=== PATIENT | female | born 1975 | race Caucasian/White ===

== ENCOUNTER 2022-11-11 15:33 | Outpatient (CLI) | payer OTHER ==
--- NOTE | 2022-11-11 17:25 | XRAY Report ---
PROCEDURE: Chest 2 View X-Ray INDICATIONS: DYSPNEA TECHNIQUE: 2 views of the chest were acquired. COMPARISON: None FINDINGS: Surgical changes and devices: None. Lungs and pleura: Diffuse bilateral perihilar interstitial thickening. Mild bronchial wall thickening in the infrahilar region on the right. No focal consolidation, pleural effusion, or pneumothorax. Mediastinum: Slight prominence of the right mediastinum. Aortic contour is normal. Heart size is norm al. Bones and chest wall: No suspicious bony abnormalities. Soft tissues appear unremarkable. IMPRESSION: 1. Diffuse interstitial thickening and bronchial wall thickening suggestive of an interstitial or vir al pneumonitis. There is also be a superimposed bronchitis. 2. No pleural effusion. 3. Prominent right mediastinal contour, probably adenopathy. Consider repeat two-view chest x-ray aft er resolution of current symptoms. Reviewed by: Jovana Rae MD on 11/11/2022 5:24 PM PST Approved by: Jovana Rae MD on 11/11/2022 5:24 PM PST Station ID: [id number]
== END 2022-11-11 23:59 | disposition home or self-care (01) ==
LOC: DI.N 15:33
PROVIDERS: ATTEND Physician Assistant Medical
DX: R91.8 Other nonspecific abnormal finding of lung field (principal)

== ENCOUNTER 2022-11-12 13:39 | Emergency (ER) | payer OTHER ==
--- NOTE | 2022-11-12 15:03 | ED Physician Documentation ---
PD HPI DYSPNEA - Stated complaint Stated Complaint: SOA - Chief complaint Chief Complaint: Resp - History obtained from History obtained from: Patient - Additional information Additional information: 47-year-old woman who is generally healthy with the exception of noted BMI of 56 presents for evaluation of dyspnea. About a week and a half ago developed a flulike illness with cough, sore throat, runny nose aches. She tested negative for COVID. Subsequently that all got better but she has had progressive dyspnea ever since. The cough is resolved. She went to urgent care yesterday where she had an x-ray done showing bronchitis. She was diagnosed with pneumonia and started on doxycycline and albuterol and has not improved, in fact has gotten a little worse. She denies chest pain. She denies pedal edema (noting she does have pedal edema on exam). She has minimal cough at this point. No fevers. No history of heart or lung problems. A former smoker, she quit smoking 12 years ago. Review of Systems Constitutional: denies: Chills Cardiac: denies: Chest pain / pressure, Palpitations, Pedal edema, Calf pain Respiratory: reports: Dyspnea PD PAST MEDICAL HISTORY - Present Medications Home Medications: Ambulatory Orders Medication Instructions Recorded Confirmed Albuterol Sulfate [Proair 90 mcg IH QID PRN 11/12/22 11/12/22 Respiclick] Doxycycline [Vibramycin] 100 mg PO BID 11/12/22 11/12/22 Furosemide [Lasix] 20 mg PO DAILY #7 tablet 11/12/22 Lisinopril [Zestril] 20 mg PO DAILY #30 tablet 11/12/22 Potassium Chloride 10 meq PO DAILY #7 tab 11/12/22 - Allergies Allergies/Adverse Reactions: Allergies Allergy/AdvReac Type Severity Reaction Status Date / Time amoxicillin Allergy Unknown Verified 11/12/22 13:53 Penicillins Allergy Unknown Verified 11/12/22 13:53 ibuprofen AdvReac Emesis Verified 11/12/22 13:53 PD ED PE NORMAL - Vitals Vital signs reviewed: Yes - General General: Alert and oriented X 3, No acute distress - HEENT HEENT: PERRL, EOMI - Neck Neck: Supple, no meningeal sign, No bony TTP - Cardiac Cardiac: RRR, No murmur - Respiratory Respiratory: No respiratory distress, Clear bilaterally - Abdomen Abdomen: Non tender - Back Back: No CVA TTP, No spinal TTP - Derm Derm: Normal color, Warm and dry - Extremities Extremities: Other (2+ bilateral pitting pedal edema without calf tenderness.) - Neuro Neuro: Alert and oriented X 3, Normal speech Results - Vitals Vitals: Vital Signs - 24 hr 11/12/22 11/12/22 11/12/22 13:49 14:56 16:52 Temperature 37.2 C Heart Rate 93 87 75 Respiratory 18 16 16 Rate Blood Pressure 152/75 H 209/94 H O2 Saturation 92 96 95 Oxygen O2 Source Room air - EKG (time done) 1548 Rate: Rate (enter#) (78) Rhythm: NSR, LAE [place]: Normal Intervals: Normal VA QRS: Low voltage Ischemia: Q waves (yessy/lat). No: ST elevation c/w ischemia, ST depression Compare to prior EKG: Old EKG unavailable Computer interpretation: Agree with computer - Labs Labs: Laboratory Tests 11/12/22 11/12/22 11/12/22 14:12 15:09 15:31 WBC 10.7 RBC 3.72 L Hgb 11.0 L Hct 35.7 L MCV 96.0 MCH 29.6 MCHC 30.8 L RDW 14.4 Plt Count 394 MPV 9.6 Neut # (Auto) 8.6 H Lymph # (Auto) 1.3 L Haines # (Auto) 0.7 Eos # (Auto) 0.0 Baso # (Auto) 0.0 Absolute Nucleated RBC 0.00 Nucleated RBC % 0.0 VBG pH VBG pCO2 VBG pO2 VBG HCO3 VBG Total CO2 VBG O2 Saturation VBG Base Excess Sodium Potassium Chloride Carbon Dioxide Anion Gap BUN Creatinine Estimated GFR (MDRD) Glucose Calcium Total Bilirubin AST ALT Alkaline Phosphatase Troponin I High Sens B-Natriuretic Peptide Total Protein Albumin Globulin Albumin/Globulin Ratio Urine Color YELLOW Urine Clarity CLEAR Urine pH 6.0 Ur Specific [place] <=1.005 Urine Protein NEGATIVE Urine Glucose (UA) NEGATIVE Urine Ketones NEGATIVE Urine Occult Blood TRACE-INTA Urine Nitrite NEGATIVE Urine Bilirubin NEGATIVE Urine Urobilinogen 0.2 (NORMAL) Ur Leukocyte Esterase NEGATIVE Ur Microscopic Review NOT INDICATED Urine Culture Comments NOT INDICATED Urine HCG, Qual NEGATIVE Nasal Adenovirus (PCR) NOT DETECTED Nasal B. parapertussis DNA (PCR) NOT DETECTED Nasal Coronavir 229E PCR NOT DETECTED Nasal Coronavir HKU1 PCR NOT DETECTED Nasal Coronavir NL63 PCR NOT DETECTED Nasal Coronavir OC43 PCR NOT DETECTED Nasal Enterovir/Rhinovir PCR NOT DETECTED Nasal Influenza B PCR NOT DETECTED Nasal Influenza A PCR NOT DETECTED Nasal Parainfluen 1 PCR NOT DETECTED Nasal Parainfluen 2 PCR NOT DETECTED Nasal Parainfluen 3 PCR NOT DETECTED Nasal Parainfluen 4 PCR NOT DETECTED Nasal RSV (PCR) NOT DETECTED Nasal B.pertussis DNA PCR NOT DETECTED Nasal C.pneumoniae (PCR) NOT DETECTED Negro Human Metapneumo PCR NOT DETECTED Nasal M.pneumoniae (PCR) NOT DETECTED Nasal SARS-CoV-2 (PCR) NOT DETECTED 11/12/22 11/12/22 11/12/22 15:31 15:31 15:31 WBC RBC Hgb Hct MCV MCH MCHC RDW Plt Count MPV Neut # (Auto) Lymph # (Auto) Haines # (Auto) Eos # (Auto) Baso # (Auto) Absolute Nucleated RBC Nucleated RBC % VBG pH 7.455 H VBG pCO2 44.8 VBG pO2 59.8 H VBG HCO3 30.8 H VBG Total CO2 32.2 H VBG O2 Saturation 91.3 H VBG Base Excess 6.1 H Sodium 137 Potassium 3.9 Chloride 96 L Carbon Dioxide 31 Anion Gap 10.0 BUN 13 Creatinine 0.8 Estimated GFR (MDRD) 77 L Glucose 106 H Calcium 9.1 Total Bilirubin 0.9 AST 42 ALT 106 H Alkaline Phosphatase 123 H Troponin I High Sens B-Natriuretic Peptide 534 H Total Protein 7.9 Albumin 3.8 Globulin 4.1 Albumin/Globulin Ratio 0.9 L Urine Color Urine Clarity Urine pH Ur Specific [place] Urine Protein Urine Glucose (UA) Urine Ketones Urine Occult Blood Urine Nitrite Urine Bilirubin Urine Urobilinogen Ur Leukocyte Esterase Ur Microscopic Review Urine Culture Comments Urine HCG, Qual Nasal Adenovirus (PCR) Nasal B. parapertussis DNA (PCR) Nasal Coronavir 229E PCR Nasal Coronavir HKU1 PCR Nasal Coronavir NL63 PCR Nasal Coronavir OC43 PCR Nasal Enterovir/Rhinovir PCR Nasal Influenza B PCR Nasal Influenza A PCR Nasal Parainfluen 1 PCR Nasal Parainfluen 2 PCR Nasal Parainfluen 3 PCR Nasal Parainfluen 4 PCR Nasal RSV (PCR) Nasal B.pertussis DNA PCR Nasal C.pneumoniae (PCR) Negro Human Metapneumo PCR Nasal M.pneumoniae (PCR) Nasal SARS-CoV-2 (PCR) 11/12/22 15:31 WBC RBC Hgb Hct MCV MCH MCHC RDW Plt Count MPV Neut # (Auto) Lymph # (Auto) Haines # (Auto) Eos # (Auto) Baso # (Auto) Absolute Nucleated RBC Nucleated RBC % VBG pH VBG pCO2 VBG pO2 VBG HCO3 VBG Total CO2 VBG O2 Saturation VBG Base Excess Sodium Potassium Chloride Carbon Dioxide Anion Gap BUN Creatinine Estimated GFR (MDRD) Glucose Calcium Total Bilirubin AST ALT Alkaline Phosphatase Troponin I High Sens 69.0 H* B-Natriuretic Peptide Total Protein Albumin Globulin Albumin/Globulin Ratio Urine Color Urine Clarity Urine pH Ur Specific [place] Urine Protein Urine Glucose (UA) Urine Ketones Urine Occult Blood Urine Nitrite Urine Bilirubin Urine Urobilinogen Ur Leukocyte Esterase Ur Microscopic Review Urine Culture Comments Urine HCG, Qual Nasal Adenovirus (PCR) Nasal B. parapertussis DNA (PCR) Nasal Coronavir 229E PCR Nasal Coronavir HKU1 PCR Nasal Coronavir NL63 PCR Nasal Coronavir OC43 PCR Nasal Enterovir/Rhinovir PCR Nasal Influenza B PCR Nasal Influenza A PCR Nasal Parainfluen 1 PCR Nasal Parainfluen 2 PCR Nasal Parainfluen 3 PCR Nasal Parainfluen 4 PCR Nasal RSV (PCR) Nasal B.pertussis DNA PCR Nasal C.pneumoniae (PCR) Negro Human Metapneumo PCR Nasal M.pneumoniae (PCR) Nasal SARS-CoV-2 (PCR) PD Medical Decision Making - ED course ED course: 47-year-old woman with progressive dyspnea after a flulike illness. She was diagnosed with pneumonia yesterday and started on doxycycline and albuterol, that said the pedal edema is concerning (but may be related to body habitus) and her lungs are clear. We will broaden the differential to rule out CHF and PE. Subsequently her testing came back with an elevated troponin but a nonischemic EKG and no chest pain, and elevated BNP and mild elevation of the liver enzymes. This constellation is consistent with new onset CHF. 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 She was medicated here with lisinopril, IV Lasix, and potassium. I recommended admission for medical management and echocardiograph versus transfer to a facility that has cardiology consultation ability. After extensive discussion she declined and decided to leave [facility], she has an appoint with her primary care physician tomorrow. Departure - Departure Disposition: Against Medical Advice Clinical Impression: Congestive heart failure Qualifiers: Heart failure type: unspecified Heart failure chronicity: acute Qualified Code(s): I50.9 - Heart failure, unspecified Condition: Good Record reviewed to determine appropriate education?: Yes Instructions: ED CHF General Prescriptions: Furosemide [Lasix] 20 mg PO DAILY #7 tablet Potassium Chloride 10 meq PO DAILY #7 tab Lisinopril [Zestril] 20 mg PO DAILY #30 tablet Comments: You were seen today for new onset congestive heart failure after a viral illness. Your blood counts were notable for hemoglobin of 11, hematocrit of 35.7. Venous blood gas showed a pH of 7.455, CO2 44. Chemistry panel showed mild congestive hepatopathy likely with an ALT of 106, AST 42, alkaline phosphatase of 123. Your troponin was elevated at 69, high end of normal would be 15, and your BNP was elevated at 534, normal would be less than 100. Urinalysis was negative as was a test, and a respiratory PCR which checks for COVID, flu, RSV etc. was negative. CT angiography of the chest was negative for pulmonary embolism. We have recommended admission to the hospital or transfer to a facility capable of a more thorough cardiac work-up. After discussion you have decided to leave AGAINST MEDICAL ADVICE. Prior to leaving you were administered 40 mg of IV Lasix, 20 mg of oral lisinopril, and 20 mEq of oral potassium. Follow-up with your doctor tomorrow as scheduled. Return for new or worsening symptoms. Mg
[2022-11-12 15:17] LABS: BILIRUBIN,URINE NEGATIVE (NEGATIVE); GLUCOSE, URINE (UA) NEGATIVE (NEGATIVE); KETONES,URINE (UA) NEGATIVE (NEGATIVE); LEUKOCYTE ESTERASE, URINE NEGATIVE (NEGATIVE); NITRITE,URINE NEGATIVE (NEGATIVE); OCCULT BLOOD,URINE TRACE-INTA (NEGATIVE); PROTEIN,URINE NEGATIVE (NEGATIVE); UROBILINOGEN,URINE 0.2 (NORMAL) E.U./dL (NORMAL)
[2022-11-12 15:19] LABS: CLARITY,URINE CLEAR (CLEAR)
[2022-11-12 15:20] LABS: HCG UR QUAL NEGATIVE
[2022-11-12 15:38] LABS: BASOPHILS % (AUTO) 0.4 %; EOSINOPHILS % (AUTO) 0.1 %; HCT - HEMATOCRIT 35.7 % (37.0-47.0); LYMPHOCYTES # (AUTO) 1.3 10^3/uL (1.5-3.5); LYMPHOCYTES % (AUTO) 11.8 %; MEAN CORPUSCULAR HEMOGLOBIN 29.6 pg (27.0-31.0); MEAN CORPUSCULAR HGB CONC 30.8 g/dL (32.0-36.0); MEAN PLATELET VOLUME 9.6 fL (7.9-10.8); MONOCYTES # (AUTO) 0.7 10^3/uL (0.0-1.0); MONOCYTES % (AUTO) 6.4 %; NEUTROPHILS # (AUTO) 8.6 10^3/uL (1.5-6.6); NEUTROPHILS % (AUTO) 80.5 %; PLT - PLATELET COUNT 394 10^3/uL (130-450); RED BLOOD COUNT 3.72 10^6/uL (4.20-5.40); RED CELL DISTRIBUTION WIDTH 14.4 % (12.0-15.0); WHITE BLOOD COUNT 10.7 x10^3/uL (4.8-10.8)
[2022-11-12 15:43] LABS: VBG BASE EXCESS 6.1 mmol/L (-2 - +2); VBG HCO3 30.8 mmol/L (23-28); VBG OXYGEN SATURATION 91.3 % (60-80); VBG PCO2 44.8 mmHg (41-51); VBG PH 7.455 (7.31-7.41); VBG PO2 59.8 mmHg (25-47); VBG TOTAL CO2 32.2 mmol/L (24-29)
[2022-11-12 15:50] LABS: ALBUMIN 3.8 g/dL (3.2-5.5); ALBUMIN/GLOBULIN RATIO 0.9 (1.0-2.2); BILIRUBIN,TOTAL 0.9 mg/dL (0.2-1.0); CALCIUM 9.1 mg/dL (8.5-10.3); CREATININE 0.8 mg/dL (0.4-1.0); POTASSIUM 3.9 mmol/L (3.5-5.0); TOTAL PROTEIN 7.9 g/dL (6.7-8.2)
[2022-11-12] MEDS ORDERED: iohexoL-300 100 ML VIAL ONE (16:01)
[2022-11-12] MEDS ORDERED: iohexoL-300 100 ML VIAL IVP ONE (16:21)
[2022-11-12 16:37] LABS: B. PARAPERTUSSIS- RESP PCR PAN NOT DETECTED; B. PERTUSSIS- RESP PCR PANEL NOT DETECTED; C. PNEUMONIAE- RESP PCR PANEL NOT DETECTED; CORONAVIRUS 229E-RESP PCR NOT DETECTED; CORONAVIRUS HKU1-RESP PCR NOT DETECTED; CORONAVIRUS NL63-RESP PCR NOT DETECTED; CORONAVIRUS OC43-RESP PCR NOT DETECTED; HUMAN METAPNEUMOVIRUS NOT DETECTED; INFLUENZA A- RESP PCR PANEL NOT DETECTED; INFLUENZA B - RESP PCR PANEL NOT DETECTED; M. PNEUMONIAE- RESP PCR PANEL NOT DETECTED; PARAINFLUENZA VIRUS 1 NOT DETECTED; PARAINFLUENZA VIRUS 2 NOT DETECTED; PARAINFLUENZA VIRUS 3 NOT DETECTED; PARAINFLUENZA VIRUS 4 NOT DETECTED; RHINOVIRUS/ENTEROVIRUS NOT DETECTED; RSV- RESP PCR PANEL NOT DETECTED; SARS-CoV-2 -RESP PCR PANEL NOT DETECTED
--- NOTE | 2022-11-12 16:50 | CT Report ---
PROCEDURE: ANGIO CHEST W/WO INDICATIONS: pe protocol, dyspnea CONTRAST: 80mL Omni 300 TECHNIQUE: After the administration of intravenous contrast, 2 mm axial images were acquired from the pulmonary apices to the posterior costophrenic angles during the arterial phase. In addition, 1 mm lung kernel and 5 mm soft tissue kernel reconstructions were performed. 3-dimensional coronal oblique maximum int ensity projection (MIP) reformats, 8 mm axial MIP, and 5 mm coronal and sagittal MPR reformats were t hen performed through the thorax. For radiation dose reduction, the following was used: automated exp osure control, adjustment of mA and/or kV according to patient size. COMPARISON: None FINDINGS: Image quality: Excellent. Pulmonary arteries: Pulmonary arteries are normal in size, and demonstrate no intraluminal filling d efects to suggest central pulmonary embolism. Lungs and pleura: Lungs are clear. No pleural effusions or pneumothorax. Central and peripheral ai rways are patent. Mediastinum: Heart size is normal, without pericardial effusion. No mediastinal or hilar adenopathy . Thoracic aorta is normal in caliber and enhancement. Esophagus is normal in caliber, without hiat al hernia. Bones and chest wall: No suspicious bony lesions. Ribs and thoracic spine appear intact throughout. No axillary or supraclavicular adenopathy. The thyroid is normal in size and there are no incident al findings. Abdomen: Visualized upper abdominal solid organs appear normal in the early arterial phase of enhanc ement. IMPRESSION: No acute pulmonary embolus. No acute pulmonary findings. Reviewed by: Etelvina Gregg MD on 11/12/2022 4:48 PM [facility] Approved by: Etelvina Gregg MD on 11/12/2022 4:48 PM PST Station ID: [id number]
[2022-11-12] MEDS ORDERED: POTASSIUM CHLORIDE 20 MEQ TABLET PO STA (17:09)
[2022-11-12] MEDS ORDERED: lisinopriL 20 MG TABLET PO STA (17:09)
[2022-11-12] MEDS ORDERED: FUROSEMIDE 40 MG/4 ML VIAL IVP STA (17:09)
[2022-11-12 17:48] VITALS: BP 207/112
== END 2022-11-12 17:48 | disposition left against medical advice (07) ==
LOC: ED 13:39
DX: I50.9 Heart failure, unspecified (principal); J18.9 Pneumonia, unspecified organism; J40 Bronchitis, not specified as acute or chronic; Z20.822 Contact with and (suspected) exposure to COVID-19
CPT/HCPCS: 36415; 71275; 80053; 81003; 81025; 82803; 83880; 84484; 85025; 87633; 93005; 96374; 99284; A9270; Q9967; 81001; 87086

== ENCOUNTER 2022-12-01 10:14 | Outpatient (CLI) | payer OTHER ==
[2022-12-01 11:46] LABS: BASOPHILS % (AUTO) 0.5 %; EOSINOPHILS # (AUTO) 0.4 10^3/uL (0.0-0.7); EOSINOPHILS % (AUTO) 4.6 %; HCT - HEMATOCRIT 39.6 % (37.0-47.0); HGB - HEMOGLOBIN 12.7 g/dL (12.0-16.0); LYMPHOCYTES % (AUTO) 22.1 %; MEAN CORPUSCULAR HEMOGLOBIN 30.1 pg (27.0-31.0); MEAN CORPUSCULAR HGB CONC 32.1 g/dL (32.0-36.0); MEAN CORPUSCULAR VOLUME 93.8 fL (81.0-99.0); MEAN PLATELET VOLUME 10.3 fL (7.9-10.8); MONOCYTES # (AUTO) 0.5 10^3/uL (0.0-1.0); MONOCYTES % (AUTO) 6.1 %; NEUTROPHILS # (AUTO) 5.9 10^3/uL (1.5-6.6); NEUTROPHILS % (AUTO) 66.4 %; PLT - PLATELET COUNT 390 10^3/uL (130-450); RED BLOOD COUNT 4.22 10^6/uL (4.20-5.40); RED CELL DISTRIBUTION WIDTH 13.6 % (12.0-15.0); WHITE BLOOD COUNT 8.8 x10^3/uL (4.8-10.8)
[2022-12-01 11:55] LABS: ESTIMATED AVERAGE GLUCOSE 126 mg/dL (70-100)
[2022-12-01 12:18] LABS: THYROID STIMULATING HORMONE 2.08 uIU/mL (0.34-5.60)
[2022-12-01 12:19] LABS: ALBUMIN 3.8 g/dL (3.2-5.5); ALKALINE PHOSPHATASE 118 IU/L (42-121); ALT ALANINE AMINOTRANSFERASE 48 IU/L (10-60); AST ASPARTATE AMINOTRANSFERASE 38 IU/L (10-42); BILIRUBIN,TOTAL 0.5 mg/dL (0.2-1.0); BUN - BLOOD UREA NITROGEN 14 mg/dL (6-20); CALCIUM 9.2 mg/dL (8.5-10.3); CARBON DIOXIDE - CO2 33 mmol/L (21-32); CHLORIDE 90 mmol/L (101-111); CHOL/HDL RATIO 4.3 (<4.4); CHOLESTEROL 214 mg/dL; CREATININE 0.8 mg/dL (0.4-1.0); GFR - MDRD 77 (>89); GLUCOSE 127 mg/dL (70-100); HDL CHOLESTEROL 50 mg/dL; LDL CHOLESTEROL,CALCULATED 137 mg/dL; LDL/HDL RATIO 2.7 (<4.4); POTASSIUM 3.6 mmol/L (3.5-5.0); SODIUM 134 mmol/L (135-145); TOTAL PROTEIN 7.8 g/dL (6.7-8.2); TRIGLYCERIDES 136 mg/dL; VLDL CHOLESTEROL 27 mg/dL
== END 2022-12-01 10:15 | disposition home or self-care (01) ==
LOC: LAB.N 10:14
PROVIDERS: ATTEND Nurse Practitioner Family
DX: I10 Essential (primary) hypertension (principal); R06.00 Dyspnea, unspecified; E66.01 Morbid (severe) obesity due to excess calories; Z68.42 Body mass index [BMI] 45.0-49.9, adult
CPT/HCPCS: 36415; 80053; 80061; 83036; 83721; 84443; 85025

== ENCOUNTER 2022-12-23 14:20 | Outpatient (CLI) | payer OTHER | END 2022-12-23 14:21 | disposition home or self-care (01) | LOC: NS 14:20 | PROVIDERS: ATTEND Nurse Practitioner Family | DX: Z71.3 Dietary counseling and surveillance (principal); E66.01 Morbid (severe) obesity due to excess calories; Z68.42 Body mass index [BMI] 45.0-49.9, adult | CPT/HCPCS: 97802 ==

== ENCOUNTER 2023-01-08 13:43 | Outpatient (CLI) | payer OTHER ==
[2023-01-08 14:34] VITALS: BP 132/68
--- NOTE | 2023-01-08 14:34 | SLEEP CARE CONSULTATION ---
Information from patient questionnaire entered by Lucretia Herron. I have reviewed and concur with the information entered by Lucretia Herron. This document represents the service I personally performed and the decisions made by me, Betty Rod ARNP. History of Present Illness Service Date and Time: 01/08/2023 1343 Reason for Visit: New patient Chief Complaint: reports: Unrefreshed sleep, Snoring, Observed pauses in breathing, Fatigue, Frequent awakenings at night Date of Onset: 2+YRS Usual bedtime: 10PM Time it takes to fall asleep: 20-30MIN Snores at night: Yes Observed to quit breathing while asleep: Yes Sleeps alone due to snoring: No Number of times waking at night: 2-3 Reasons for waking at night: reports: Choking, Gasping for air, Bathroom, Other (UNKNOWN ). denies: Snoring Toss, Turn, or Twitch while sleeping: Yes Recalls having dreams: Yes Usually gets out of bed at: 530AM WEEKDAYS 7-8AM WEEKENDS Feels refreshed in the morning: No Morning headache: Yes (2 times a month; RESOLVES AFTER COFFEE) Sleepy or fatigued during the day: Yes (falling asleep at computer at work) Ever fallen asleep while driving: Yes (drowsy driving; no accidents) Takes day naps: Yes (most weekends, both days; lasts 1+ hours) Dreams during day naps: Yes Prior sleep studies: No Additional HPI information: I had the pleasure of seeing [facility] today regarding the possibility of her having a sleep disorder. Her current complaints are excessive daytime sleepiness, fatigue, frequent night awakenings, observed pauses in breathing, snoring and unrefreshed sleep. She states that she got sick after Marcela and she got better except for her breathing. She was told she might have sleep apnea. She is currently on nocturnal oxygen at 4.5 L/min because her oxygen levels were low during night. She has been gaining weight since Covid started. She has gained about 100+ pounds in last 3 years. 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 Patient is and lives in [place]. Have you smoked in the past 12 months: No Years of smokin Quit date: 2011 Alcohol use: Yes Alcohol amount and frequency: 2-4 DRINKS WEEKENDS Caffeine use: Yes Caffeine amount and frequency: 2CUPS COFFEE DAILY MORNINGS Family History Family history of sleep disordered breathing: Yes Family Hx Sleep Apnea: Mother: Snoring, Sleep apnea - Treated, Sibling: Snoring, Sleep apnea - Treated, Sleep apnea - Untreated Allergies and Home Medications Known drug allergies: Yes ([place] [facility] ) Drug allergies reviewed: Yes Home medication list reviewed: Yes Allergy and home medication list: Medications: Metformin 500 mg daily Losartan 25 mg daily Potassium Cl daily Furosemide 80 mg daily Vitamin D Vitamin C Review of Systems Weight gain over past 5 years: 100 Weight loss over past 5 years: 30 Cardiovascular: reports: high blood pressure Respiratory: reports: shortness of breath Gastrointestinal: denies: heartburn, difficulty swallowing Neurological: reports: headaches Psychiatric: denies: anxiety, depression Ear/Nose/Throat: denies: tonsillectomy, wisdom teeth removed Endocrine: reports: sluggishness Musculoskeletal: reports: joint pain Immunologic: denies: allergies to food or environment Physical Exam Vital signs obtained and entered by: LUCRETIA Dobson MA Blood Pressure: 132/68 (LEFT ARM) Cuff size: long Heart Rate: 96 O2 Saturation: 95 Height: 5 ft 2 in Weight: 280 lb 6.4 oz Body Mass Index: 51.2 BMI Classification: Morbidly Obese Neck circumference: 20.25 Mouth and throat: narrow oropharynx Soft palate: long Hard palate: normal Uvula: normal Uvula visualization: 0% Mallampati Class IV Tongue: normal in size Tonsils: 2+ Neck: normal w/o lymphadenopathy or thyromegaly Heart: regular rate and rhythm Lungs: clear bilaterally Impression and Plan 1. Suspected Obstructive Sleep Apnea-Hypopnea Syndrome, as suggested by a history of loud and irregular snoring, observed cessation of breath while asleep, gasping or choking in sleep, morning headache, frequent awakening during the night, unrefreshed sleep, and excessive daytime sleepiness. Narrow oropharynx and obesity are common predisposing factors for obstructive sleep apnea-hypopnea syndrome. I recommend proceeding to polysomnography to confirm the diagnosis and to assess severity. If the patient has significant sleep disordered breathing, a manual CPAP titration study will also be performed to find the optimal treatment pressure. I informed the patient of what the sleep studies involve and after some discussion, obtained agreement to proceed. The pathophysiology of obstructive sleep apnea-hypopnea syndrome was discussed with the patient and health risks of cardiovascular and cerebrovascular disease if n ot treated. 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 Patient agreed to plan. * Schedule polysomnography * Avoid long distance driving or driving when feeling sleepy. * Avoid alcohol, sedative and muscle relaxant around bedtime. * Attempt to lose weight. * Review instructions provided by trained office staff on how to prepare for the sleep study. * Return for follow-up after sleep study completed. Counseling Topics: Weight loss health impact Visit Type: In Office Time Spent with Patient (minutes): 34 Provider Statement: I spent 100% of the Face to Face Visit with the patient with greater than 50% spent counseling the patient and coordination of care.
== END 2023-01-08 13:44 | disposition home or self-care (01) ==
LOC: SC 13:43
PROVIDERS: ATTEND Nurse Practitioner Family
DX: G47.10 Hypersomnia, unspecified (principal); R53.83 Other fatigue; G47.8 Other sleep disorders; R51.9 Headache, unspecified; R06.83 Snoring; R06.81 Apnea, not elsewhere classified; E11.9 Type 2 diabetes mellitus without complications; I11.0 Hypertensive heart disease with heart failure; I50.9 Heart failure, unspecified; Z87.891 Personal history of nicotine dependence; E66.01 Morbid (severe) obesity due to excess calories; Z68.43 Body mass index [BMI] 50.0-59.9, adult
CPT/HCPCS: 99203; 99212

== ENCOUNTER 2023-02-09 19:31 | Outpatient (CLI) | payer OTHER | END 2023-02-09 19:32 | disposition home or self-care (01) | LOC: SC 19:31 | PROVIDERS: ATTEND Nurse Practitioner Family | DX: G47.33 Obstructive sleep apnea (adult) (pediatric) (principal) | CPT/HCPCS: 95810 ==

== ENCOUNTER 2023-02-20 15:23 | Outpatient (CLI) | payer OTHER ==
--- NOTE | 2023-02-20 15:52 | SLEEP CARE CONSULTATION ---
Information from patient questionnaire entered by Lucretia Herron. I have reviewed and concur with the information entered by Lucretia Herron. This document represents the service I personally performed and the decisions made by , Betty Rod ARNP. History of Present Illness Service Date and Time: 02/20/2023 1523 Initial [place] Sleepiness Scale score: 19 (01/08/23) Current [place] Sleepiness Scale score: 18 (02/20/23) Additional HPI information: [facility] returns for follow up and results of the recently performed polysomnography. I explained the pathophysiology behind obstructive sleep apnea. We then spent quite a bit of time discussing different treatment options. For mild obstructive sleep apnea, surgery and oral appliance are alternatives to nasal CPAP therapy but in moderate or severe cases, nasal CPAP is the most effective and reliable treatment. Because apnea is primarily in supine position, then positional management therapy could be effective. Methods discussed such as positioning with pillows to prevent supine sleep. I reviewed the impact of weight changes on sleep apnea and strongly recommended losing weight. After some discussion, the patient opted to go with the nasal CPAP therapy. Nasal autoCPAP set at 4-15 cmH20 will be ordered with rationale explained. A manual titration study will be ordered if unable to find optimal pressure with office adjustments. I explained how CPAP machine works and what to expect when using the machine. Using CPAP every night in order to get used to it was emphasized. Patient advised to put CPAP mask on before getting into bed so as not to fall asleep without CPAP. To assist acclimation to CPAP use, it could also be used for a short time during day while reading or watching TV. The patient was instructed to call the CPAP supplier to discuss any mechanical problem that may occur. If the mask given is uncomfortable or is difficult to keep on through the night even with adjustment, contact the CPAP supplier as many will replace with another mask style if notified before 30 days. If snoring or perceives is not getting enough air or too much air from the machine, notify this office. Patient counseled not drink alcohol less than 4 hours before bedtime as it can increase snoring and apnea. Patient was cautioned about risks of drowsy driving until sleepiness symptoms resolve. Sleep Study - Results Type of Sleep Study: Polysomnography (COMPLETED 02/09/23) Prior sleep studies: No Polysomnography/Home Sleep Study results: IMPRESSION: The quality of the study is good. The patient had slightly reduced sleep efficiency due to frequent awakenings throughout the night. The sleep architecture was abnormal for sleep fragmentation and lack of slow wave sleep (N3). Respiratory monitoring showed extremely severe obstructive sleep apnea-hypopnea (AHI = 115.5) associated with frequent arousals, oxyhemoglobin desaturation and severe hypoxia (lucas oxygen saturation of 45%). Baseline oxygen saturation was normal. The respiratory events occurred independently of sleep stage and body position (supine AHI = 120.0; non-supine = 115.48). Snore was loud in intensity. There was no significant periodic leg movement of sleep. Cardiac rhythm was normal sinus rhythm without significant arrhythmia. No abnormal behavior (parasomnia) observed during the night. Allergies and Home Medications Known drug allergies: Yes (as listed) Drug allergies reviewed: Yes Home medication list reviewed: Yes (Losartan 25 mg daily; Metformin 500mg daily) Allergy and home medication list: Allergies amoxicillin Allergy (Verified 02/19/23 13:12) Unknown Penicillins Allergy (Verified 02/19/23 13:12) Unknown ibuprofen Adverse Reaction (Verified 02/19/23 13:12) Emesis Review of Systems Review of systems same as previous: No (borderline diabetes; hypertension) Physical Exam Vital signs obtained and entered by: LUCRETIA Dobson MA Blood Pressure: 122/70 (LEFT ARM) Cuff size: long Heart Rate: 89 O2 Saturation: 96 Height: 5 ft 2 in Weight: 276 lb 12.8 oz Body Mass Index: 50.6 BMI Classification: Morbidly Obese Impression and Plan 1. Obstructive Sleep Apnea-Hypopnea Syndrome, extremely severe, with lowest oxygen saturation of 45%. Obviously this is the cause of the patients symptoms of unrefreshed sleep, and excessive daytime sleepiness. Positive pressure therapy could benefit hypertension, pre-diabetes and CHF. As mentioned above, the patient will be started on nasal autoCPAP therapy with pressure set at 4-15 cmH2O with a urgent setup due to severe hypoxemia. A manual titration study will be completed if unable to find optimal treatment pressure with office adjustments. Compliance guidelines also reviewed. A copy of compliance guidelines will be given for reference at check out. Because the apnea is more severe supine, I instructed to avoid sleeping supine using pillow positioning until able to start CPAP use. 2. Hypoxemia, severe, with a lucas oxygen saturation of 45% and 212.6 minutes spent under 90%. Her baseline oxygen saturation was low normal with an average oxygen saturation of 84%. * Nasal auto CPAP therapy, pressure at 4-15 cm H2O, urgent setup. * Attempt to lose weight. * Avoid alcohol consumption near bedtime. * Avoid supine sleep until using CPAP. * The patient is again cautioned about driving until sleepiness completely resolves. * Return one month after CPAP obtained. I will assess response to therapy and compliance at that time. Counseling Topics: Weight loss health impact Visit Type: In Office Time Spent with Patient (minutes): 22 Provider Statement: I spent 100% of the Face to Face Visit with the patient with greater than 50% spent counseling the patient and coordination of care.
[2023-02-20 16:06] VITALS: BP 122/70
== END 2023-02-20 15:24 | disposition home or self-care (01) ==
LOC: SC 15:23
PROVIDERS: ATTEND Nurse Practitioner Family
DX: G47.33 Obstructive sleep apnea (adult) (pediatric) (principal); R09.02 Hypoxemia; E66.01 Morbid (severe) obesity due to excess calories; Z68.43 Body mass index [BMI] 50.0-59.9, adult
CPT/HCPCS: 99212; 99213

== ENCOUNTER 2023-03-12 09:35 | Outpatient (CLI) | payer OTHER ==
[2023-03-12 12:47] LABS: ESTIMATED AVERAGE GLUCOSE 128 mg/dL (70-100); HEMOGLOBIN A1c% 6.1 % (4.27-6.07)
[2023-03-12 12:49] LABS: BILIRUBIN,TOTAL 0.6 mg/dL (0.2-1.0); CALCIUM 9.5 mg/dL (8.5-10.3); CREATININE 0.8 mg/dL (0.4-1.0); POTASSIUM 3.1 mmol/L (3.5-5.0); TOTAL PROTEIN 8.2 g/dL (6.7-8.2)
== END 2023-03-12 09:36 | disposition home or self-care (01) ==
LOC: LAB.N 09:35
PROVIDERS: ATTEND Nurse Practitioner Family
DX: I10 Essential (primary) hypertension (principal); Z79.899 Other long term (current) drug therapy; R73.03 Prediabetes
CPT/HCPCS: 36415; 80053; 83036

== ENCOUNTER 2023-04-24 09:25 | Outpatient (CLI) | payer OTHER ==
--- NOTE | 2023-04-24 10:00 | SLEEP CARE CONSULTATION ---
Information from patient questionnaire entered by Lucretia Herron. I have reviewed and concur with the information entered by Lucretia Herron. This document represents the service I personally performed and the decisions made by , Betty Rod ARNP. History of Present Illness Service Date and Time: 04/24/2023924 Previous diagnosis: Extremely Severe, Obstructive Sleep Apnea-Hypopnea Syndrome AHI: 115.5 (in 01/2023) Reason for follow up: first compliance Equipment type: CPAP (RESMED Airsense 11, s/u 02/2023) Equipment obtained from: Other ([facility]) Mask style: Nasal Mask brand: Respironics (Dreamwear) Backup mask available: No (will keep old mask when replaced) Last cushion change: 1 months Prior sleep studies: No Type of Sleep Study: Polysomnography (COMPLETED 02/09/23) HPI additional information: [facility] was diagnosed to have extremely severe, AHI 115.5, obstructive sleep apnea-hypopnea syndrome and returned today for CPAP therapy first compliance follow-up. Sleep Study - Results Type of Sleep Study: Polysomnography (COMPLETED 02/09/23) Prior sleep studies: No CPAP Compliance Data - Data Reviewed with Patient Average duration of nightly device use: 7 HRS 55 MINS Compliance rate %: 100 (03/21/23-04/19/23; 30 days used) Current pressure setting (cmH2O): 4-20 (median 13.1, avg 16.3, max 17.8) Average residual AHI: 3.0 Central apnea: 0 Obstructive apnea: 0.9 Hypopnea: 2.0 Subjective Patient concerns: reports: mask discomfort (skin redness from ). denies: aerophagia, air blowing in eyes, mask leak noise, condensation in mask/hose, nasal congestion, dry mouth, nose, throat, epistaxis Observed to snore while using device: No Current pressure setting perceived as: comfortable On therapy, patient: reports: sleeping better, awakening more refreshed, being more awake and alert during the day, more rested overall. denies: drowsiness while driving Initial [place] Sleepiness Scale score: 19 (01/08/23) Current [place] Sleepiness Scale score: 4 Allergies and Home Medications Known drug allergies: Yes (as listed) Drug allergies reviewed: Yes Home medication list reviewed: Yes (Ozempic started; increases--Klor-con 20 meq, Losartan 50 mg) Allergy and home medication list: Allergies amoxicillin Allergy (Verified 04/23/23 11:14) Unknown Penicillins Allergy (Verified 04/23/23 11:14) Unknown ibuprofen Adverse Reaction (Verified 04/23/23 11:14) Emesis Review of Systems Review of systems same as previous: Yes (no changes) Physical Exam Vital signs obtained and entered by: Betty Chowdhury NP Blood Pressure: 135/77 Cuff size: wrist (left) Heart Rate: 87 O2 Saturation: 97 Height: 5 ft 2 in Weight: 268 lb 9.6 oz Weight change since last visit: 8 lb loss Body Mass Index: 49.1 BMI Classification: Morbidly Obese Impression and Plan 1. Obstructive Sleep Apnea-Hypopnea Syndrome, extremely severe, with good treatment compliance and good apnea control. On CPAP therapy, the patient has better sleep quality and is more rested overall. She states with the silicone part of the mask, onto her face she does get a little redness of the skin. She states she tried the barriers that came with the mask but it twists around and the Velcro scratches her face. She is working with it and feels like it is going to work out. I advised her that she can try a different sort of barrier and to make sure that the mask silicone parts are being cleaned regularly. She voiced understanding. The patients pressure will be changed to autoCPAP 14-18 cmH20 to reflect pressure being used. Patient advised to contact me if pressure change is uncomfortable so that it can be adjusted. Goals for apnea control discussed. Patient's apnea severity and rationale for treatment to reduce apnea, improve sleep quality and reduce cardiovascular and cerebrovascular events was reviewed. I also reviewed the benefit of consistent device use of CPAP for hypertension, pre-diabetes and CHF. 2. Obesity, unspecified. Currently patients BMI is 49.1. Patient has lost weight. Obesity increases the risk of apnea, CPAP pressure requirements and overall health risks especially cardiovascular and diabetes. Thus patient is advised to continue to try to lose weight. * Change auto CPAP pressure to 14-18 cmH2O * Notify me if snoring with mask or feeling that the pressure is too much or too little * Continue to try to lose weight * Call this office if any problems using CPAP * Return for follow up in 1-2 months, or sooner if concerns arise Counseling Topics: Spare mask, Weight loss health impact Visit Type: In Office Time Spent with Patient (minutes): 21 Provider Statement: I spent 100% of the Face to Face Visit with the patient with greater than 50% spent counseling the patient and coordination of care.
[2023-04-24 10:04] VITALS: BP 135/77
== END 2023-04-24 09:26 | disposition home or self-care (01) ==
LOC: SC 09:25
PROVIDERS: ATTEND Nurse Practitioner Family
DX: G47.33 Obstructive sleep apnea (adult) (pediatric) (principal); E66.01 Morbid (severe) obesity due to excess calories; Z68.42 Body mass index [BMI] 45.0-49.9, adult
CPT/HCPCS: 99212; 99213

== ENCOUNTER 2023-06-19 09:29 | Outpatient (CLI) | payer OTHER ==
--- NOTE | 2023-06-19 09:44 | Sleep Patient Instructions ---
Sleep Center Visit Summary - Patient Visit Information Reason for Visit: Two month Followup for PAP therapy - Patient Instructions Additional Instructions: You were here for follow up of CPAP therapy. You will be continued on CPAP therapy with pressure at 14-16.5 cmH2O. Please let us know if the pressure change is uncomfortable and we can make further adjustments of the pressure. You should follow up with sleep care in 3 months. You may contact us sooner for any questions or concerns. - Clinic Information Contact: [facility] [address] [place] [address] [email or web address] T: [phone]
--- NOTE | 2023-06-19 09:49 | SLEEP CARE CONSULTATION ---
Information from patient questionnaire entered by Lucretia Herron. I have reviewed and concur with the information entered by Lucretia Herron. This document represents the service I personally performed and the decisions made by , Betty Rod ARNP. History of Present Illness Service Date and Time: 06/19/2023928 Previous diagnosis: Extremely Severe, Obstructive Sleep Apnea-Hypopnea Syndrome AHI: 115.5 (in 01/2023) Reason for follow up: other (2 MONTH F/U PRESSURE CHANGE) Equipment type: CPAP (RESMED Airsense 11, s/u 02/2023) Equipment obtained from: Other ([facility]; getting supplies) Mask style: Nasal Mask brand: Respironics ([employer]) Backup mask available: Yes (still needs headgear; but has other supplies) Last cushion change: 1 week Prior sleep studies: No Type of Sleep Study: Polysomnography (COMPLETED 02/09/23) HPI additional information: [facility] was diagnosed to have extremely severe, AHI 115.5, obstructive sleep apnea-hypopnea syndrome and returned today for CPAP therapy two month follow-up. Sleep Study - Results Type of Sleep Study: Polysomnography (COMPLETED 02/09/23) Prior sleep studies: No CPAP Compliance Data - Data Reviewed with Patient Average duration of nightly device use: 8 HRS 14 MINS Compliance rate %: 100 (04/16/23-06/14/23; 60/60 days used) Current pressure setting (cmH2O): 14-18 (avg 16.8, max 17.6) Average residual AHI: 2.6 Central apnea: 0 Obstructive apnea: 0.7 Hypopnea: 1.8 Average large leak: 0 L/min Subjective Patient concerns: reports: air blowing in eyes (on face), mask leak noise, condensation in mask/hose, other (some). denies: aerophagia, mask discomfort, nasal congestion, dry mouth, nose, throat, epistaxis Observed to snore while using device: No Current pressure setting perceived as: too high (sometimes with leaks) On therapy, patient: reports: sleeping better, awakening more refreshed, being more awake and alert during the day, more rested overall. denies: drowsiness while driving Initial [place] Sleepiness Scale score: 19 (01/08/23) Current [place] Sleepiness Scale score: 2 (06/19/23) Allergies and Home Medications Known drug allergies: Yes (as listed) Drug allergies reviewed: Yes Home medication list reviewed: Yes (no changes) Allergy and home medication list: Allergies amoxicillin Allergy (Verified 06/18/23 13:55) Unknown Penicillins Allergy (Verified 06/18/23 13:55) Unknown ibuprofen Adverse Reaction (Verified 06/18/23 13:55) Emesis Review of Systems Review of systems same as previous: Yes (no changes) Physical Exam Vital signs obtained and entered by: LUCRETIA Dobson MA Blood Pressure: 132/88 (LEFT ARM) Cuff size: long Heart Rate: 74 O2 Saturation: 96 Height: 5 ft 2 in Weight: 266 lb Weight change since last visit: 2 lb loss Body Mass Index: 48.6 BMI Classification: Morbidly Obese Impression and Plan 1. Obstructive Sleep Apnea-Hypopnea Syndrome, extremely severe, with good treatment compliance and good apnea control. On CPAP therapy, the patient has better sleep quality and is more rested overall. Wei feels the pressure can go too high and causes leaking onto face and leak noises. She has also been experiencing more headaches lately in the morning. She has had some condensation in the mask. I advised her to adjust heated hose or humidity to reduce condensation and explained how this was done. She voiced understanding. The patients pressure will be changed to autoCPAP 14-16.6 cmH20 for patient comfort and to reduce headaches. Patient advised to contact me if pressure change is uncomfortable so that it can be adjusted. Goals for apnea control discussed. Patient's apnea severity and rationale for treatment to reduce apnea, improve sleep quality and reduce cardiovascular and cerebrovascular events was reviewed. I also reviewed the benefit of consistent device use of CPAP for hypertension, pre-diabetes and CHF. 2. Obesity, unspecified. Currently patients BMI is 48.6. She has lost 2 pounds since last visit. Obesity increases the risk of apnea, CPAP pressure requirements and overall health risks especially cardiovascular and diabetes. Thus patient is advised to continue to try to lose weight. * Change auto CPAP pressure to 14-16.6 cmH2O * Notify me if snoring with mask or feeling that the pressure is too much or too little * Continue to try to lose weight * Call this office if any problems using CPAP * Return for follow up in 3 months, or sooner if concerns arise Counseling Topics: Spare mask, Weight loss health impact Visit Type: In Office Time Spent with Patient (minutes): 20 Provider Statement: I spent 100% of the Face to Face Visit with the patient with greater than 50% spent counseling the patient and coordination of care.
[2023-06-19 09:52] VITALS: BP 132/88; O2SAT 96
== END 2023-06-19 09:30 | disposition home or self-care (01) ==
LOC: SC 09:29
PROVIDERS: ATTEND Nurse Practitioner Family
DX: G47.33 Obstructive sleep apnea (adult) (pediatric) (principal); E66.01 Morbid (severe) obesity due to excess calories; Z68.42 Body mass index [BMI] 45.0-49.9, adult; R73.03 Prediabetes; I10 Essential (primary) hypertension
CPT/HCPCS: 36415; 80053; 83036; 99212; 99213

== ENCOUNTER 2023-06-19 09:58 | Outpatient (CLI) | payer OTHER ==
[2023-06-19 18:34] LABS: ESTIMATED AVERAGE GLUCOSE 117 mg/dL (70-100); HEMOGLOBIN A1c% 5.7 % (4.27-6.07)
[2023-06-19 19:06] LABS: ALBUMIN/GLOBULIN RATIO 1.1 (1.0-2.2); BILIRUBIN,TOTAL 0.4 mg/dL (0.2-1.0); CALCIUM 9.3 mg/dL (8.5-10.3); CREATININE 0.8 mg/dL (0.6-1.3); TOTAL PROTEIN 7.7 g/dL (6.4-8.9)
== END 2023-06-19 09:59 | disposition home or self-care (01) ==
LOC: LAB.N 09:58
PROVIDERS: ATTEND Nurse Practitioner Family
DX: I10 Essential (primary) hypertension (principal); R73.03 Prediabetes
CPT/HCPCS: 36415; 80053; 83036

== ENCOUNTER 2023-09-18 09:01 | Outpatient (CLI) | payer OTHER ==
--- NOTE | 2023-09-18 09:14 | Sleep Patient Instructions ---
Sleep Center Visit Summary - Patient Visit Information Reason for Visit: 3-month follow-up - Patient Instructions Additional Instructions: You were here for follow up of CPAP therapy. You will be continued on CPAP therapy with pressure at 14-16.6 cmH2O. You should follow up with sleep care in 12 months. You may contact us sooner for any questions or concerns. - Clinic Information Contact: [facility] [address] [place] [id number] [email or web address] T: [phone]
--- NOTE | 2023-09-18 09:17 | SLEEP CARE CONSULTATION ---
Information from patient questionnaire entered by Jose Herron. I have reviewed and concur with the information entered by Jose Herron. This document represents the service I personally performed and the decisions made by , Betty Rod ARNP. History of Present Illness Service Date and Time: 09/18/2023 09 Previous diagnosis: Extremely Severe, Obstructive Sleep Apnea-Hypopnea Syndrome AHI: 115.5 Reason for follow up: three month (F/U) Equipment type: CPAP (Resmed Airsense 11, s/u 02/2023) Equipment obtained from: Other ([facility] [place]; getting supplies) Mask style: Nasal Mask brand: Respironics (Dreamwear) Backup mask available: Yes Last cushion change: Thursday Prior sleep studies: No Type of Sleep Study: Polysomnography (COMPLETED 02/09/23) HPI additional information: [facility] was diagnosed to have extremely severe, AHI 115.5, obstructive sleep apnea-hypopnea syndrome and returned today for CPAP therapy three month follow-up. Sleep Study - Results Type of Sleep Study: Polysomnography (COMPLETED 02/09/23) Prior sleep studies: No CPAP Compliance Data - Data Reviewed with Patient Average duration of nightly device use: 8 HRS 18 MINS Compliance rate %: 100 (06/18/23-09/15/23; 90/90 days used) Current pressure setting (cmH2O): 14-16.6 Average residual AHI: 2.1 Central apnea: 0.1 Obstructive apnea: 0.6 Average large leak: 0 L/min Subjective Patient concerns: denies: aerophagia, mask discomfort, air blowing in eyes, mask leak noise, condensation in mask/hose, nasal congestion, dry mouth, nose, throat, epistaxis Observed to snore while using device: No Current pressure setting perceived as: comfortable On therapy, patient: reports: sleeping better, awakening more refreshed, being more awake and alert during the day, more rested overall. denies: drowsiness while driving Initial [place] Sleepiness Scale score: 19 (01/08/23) Current [place] Sleepiness Scale score: 2 (09/18/23) Allergies and Home Medications Known drug allergies: Yes (as listed) Drug allergies reviewed: Yes Home medication list reviewed: Yes (no changes) Allergy and home medication list: Allergies amoxicillin Allergy (Verified 09/17/23 12:21) Unknown Penicillins Allergy (Verified 09/17/23 12:21) Unknown ibuprofen Adverse Reaction (Verified 09/17/23 12:21) Emesis Review of Systems Review of systems same as previous: Yes (NO CHANGE) Physical Exam Vital signs obtained and entered by: JOSE Dobson MA Blood Pressure: 136/80 (LEFT ARM) Cuff size: long Heart Rate: 72 O2 Saturation: 100 Height: 5 ft 2 in Weight: 260 lb 12.8 oz Weight change since last visit: 6 lb loss Body Mass Index: 47.7 BMI Classification: Morbidly Obese Impression and Plan 1. Obstructive Sleep Apnea-Hypopnea Syndrome, extremely severe, with good treatment compliance and good apnea control. On CPAP therapy, the patient has better sleep quality and is more rested overall. Patient has significant improvement of their sleep apnea and is satisfied with current CPAP therapy. Patient denies problems with oral dryness, nasal congestion, epistaxis, skin irritation or aerophagia. She is comfortable with using her machine. I will have her followup in 12 months. Patient's apnea severity and rationale for treatment to reduce apnea, improve sleep quality and reduce cardiovascular and cerebrovascular events was reviewed. I also reviewed the benefit of consistent device use of CPAP for hypertension, cardiac disease (CHF) and pre-diabetes. 2. Obesity, unspecified. Currently patients BMI is 47.7. She has lost weight. Obesity increases the risk of apnea, CPAP pressure requirements and overall health risks especially cardiovascular and diabetes. Thus patient is advised to continue to try to lose weight. * Continue auto CPAP pressure at 14-16.6 cmH2O * Notify me if snoring with mask or feeling that the pressure is too much or too little * Attempt to lose weight * Call this office if any problems using CPAP * Return for follow up in 1 year, or sooner if concerns arise Counseling Topics: Spare mask, Weight loss health impact Follow up with Sleep Care in: 1 year Visit Type: In Office Time Spent with Patient (minutes): 11 Provider Statement: I spent 100% of the Face to Face Visit with the patient with greater than 50% spent counseling the patient and coordination of care.
[2023-09-18 09:26] VITALS: BP 136/80; O2SAT 100
== END 2023-09-18 09:02 | disposition home or self-care (01) ==
LOC: SC 09:01
PROVIDERS: ATTEND Nurse Practitioner Family
DX: G47.33 Obstructive sleep apnea (adult) (pediatric) (principal); E66.01 Morbid (severe) obesity due to excess calories; Z68.42 Body mass index [BMI] 45.0-49.9, adult
CPT/HCPCS: 99212

== ENCOUNTER 2023-09-24 07:57 | Outpatient (CLI) | payer OTHER | END 2023-09-24 07:58 | disposition home or self-care (01) | LOC: DI 07:57 | PROVIDERS: ATTEND Nurse Practitioner Family | DX: I10 Essential (primary) hypertension (principal); J81.1 Chronic pulmonary edema; E66.01 Morbid (severe) obesity due to excess calories; Z68.42 Body mass index [BMI] 45.0-49.9, adult | CPT/HCPCS: 93306 ==

== ENCOUNTER 2023-11-05 08:45 | Outpatient (CLI) | payer OTHER ==
[2023-11-05 12:40] LABS: CALCIUM 9.5 mg/dL (8.5-10.3); CREATININE 0.8 mg/dL (0.6-1.3); POTASSIUM 4.1 mmol/L (3.5-4.5)
== END 2023-11-05 08:46 | disposition home or self-care (01) ==
LOC: LAB.N 08:45
PROVIDERS: ATTEND Nurse Practitioner Family
DX: I10 Essential (primary) hypertension (principal); E87.6 Hypokalemia; R73.03 Prediabetes; Z79.899 Other long term (current) drug therapy
CPT/HCPCS: 36415; 80048

== ENCOUNTER 2024-03-11 08:43 | Outpatient (CLI) | payer OTHER ==
[2024-03-11 12:32] LABS: BASOPHILS # (AUTO) 0.1 10^3/uL (0.0-0.1); BASOPHILS % (AUTO) 0.5 %; EOSINOPHILS # (AUTO) 0.3 10^3/uL (0.0-0.7); EOSINOPHILS % (AUTO) 3.6 %; HCT - HEMATOCRIT 36.5 % (37.0-47.0); HGB - HEMOGLOBIN 11.3 g/dL (12.0-16.0); LYMPHOCYTES # (AUTO) 2.2 10^3/uL (1.5-3.5); LYMPHOCYTES % (AUTO) 23.8 %; MEAN CORPUSCULAR VOLUME 93.6 fL (81.0-99.0); MONOCYTES # (AUTO) 0.4 10^3/uL (0.0-1.0); MONOCYTES % (AUTO) 4.8 %; NEUTROPHILS # (AUTO) 6.1 10^3/uL (1.5-6.6); NEUTROPHILS % (AUTO) 66.8 %; PLT - PLATELET COUNT 341 10^3/uL (130-450); RED CELL DISTRIBUTION WIDTH 13.6 % (12.0-15.0); WHITE BLOOD COUNT 9.1 x10^3/uL (4.8-10.8)
[2024-03-11 13:03] LABS: ALBUMIN 4.1 g/dL (3.2-5.5); ALBUMIN/GLOBULIN RATIO 1.3 (1.0-2.2); ALKALINE PHOSPHATASE 112 IU/L (42-121); ALT ALANINE AMINOTRANSFERASE 32 IU/L (10-60); AST ASPARTATE AMINOTRANSFERASE 23 IU/L (10-42); BILIRUBIN,TOTAL 0.4 mg/dL (0.2-1.0); BUN - BLOOD UREA NITROGEN 12 mg/dL (6-20); CALCIUM 9.7 mg/dL (8.5-10.3); CARBON DIOXIDE - CO2 26 mmol/L (21-32); CHLORIDE 103 mmol/L (101-111); CHOL/HDL RATIO 4.1 (<4.4); CHOLESTEROL 204 mg/dL; CREATININE 0.8 mg/dL (0.6-1.3); GFR - MDRD 77 (>89); GLUCOSE 98 mg/dL (74-104); HDL CHOLESTEROL 50 mg/dL; LDL CHOLESTEROL,CALCULATED 127 mg/dL; LDL/HDL RATIO 2.5 (<4.4); POTASSIUM 4.6 mmol/L (3.5-4.5); SODIUM 135 mmol/L (135-145); TOTAL PROTEIN 7.3 g/dL (6.4-8.9); TRIGLYCERIDES 134 mg/dL (48-352); VLDL CHOLESTEROL 27 mg/dL
[2024-03-11 13:06] LABS: THYROID STIMULATING HORMONE 2.49 uIU/mL (0.34-5.60)
[2024-03-11 14:33] LABS: ESTIMATED AVERAGE GLUCOSE 108 mg/dL (70-100); HEMOGLOBIN A1c% 5.4 % (4.27-6.07)
== END 2024-03-11 08:44 | disposition home or self-care (01) ==
LOC: LAB.N 08:43
PROVIDERS: ATTEND Nurse Practitioner Family
DX: Z00.00 Encounter for general adult medical examination without abnormal findings (principal); E66.01 Morbid (severe) obesity due to excess calories
CPT/HCPCS: 36415; 80053; 80061; 83036; 83721; 84443; 85025